=== PATIENT | male | born 1950 | race Caucasian/White ===

== ENCOUNTER 2025-03-18 14:17 | Outpatient (CLI) | payer OTHER | END 2025-03-18 14:18 | disposition home or self-care (01) | LOC: CSHERS 14:17 | PROVIDERS: ATTEND Hospitalist | DX: R53.1 Weakness (principal); G31.9 Degenerative disease of nervous system, unspecified; I67.89 Other cerebrovascular disease; M48.02 Spinal stenosis, cervical region; M48.03 Spinal stenosis, cervicothoracic region; M47.816 Spondylosis without myelopathy or radiculopathy, lumbar region | CPT/HCPCS: 70553; 72141; 72146; 72148; 76376 ==